=== PATIENT | male | born 1945 | race Caucasian/White ===

== ENCOUNTER 2019-02-07 15:40 | Outpatient (CLI) | payer MEDICARE ==
[~2019-02-07 15:40] MED LIST: Iopamidol 370 76% 100 ML VIAL ONE
[2019-02-07 16:39] LABS: Estimated GFR-MDRD - POC Greater than 90
--- NOTE | 2019-02-07 16:59 | CT ---
CT chest with IV contrast HISTORY: Aortic valve insufficiency. COMPARISON: 04/30/2014. FINDINGS: There is good contrast opacification pulmonary arteries and thoracic aorta with normal bran stepan great vessels. The descending aorta is upper limits of normal at 4.0 cm AP diameter. Calcification within the coronary arteries and other arterial structures. A few calcified mediastinal lymph nodes, consistent with healed granulomatous disease of the chest. No focal parenchymal lung mass, pleural fluid, or mediastinal adenopathy. Degenerative changes of the thoracic spine. Small liver cyst partially visualized. It appears stable. IMPRESSION: Atherosclerosis. Stable CT appearance of the chest. No significant abnormalities are demonstrated.
== END 2019-02-07 15:41 | disposition home or self-care (01) ==
LOC: BICCT 15:40
PROVIDERS: ATTEND Internal Medicine Cardiovascular Disease
DX: I35.1 Nonrheumatic aortic (valve) insufficiency (principal); I77.89 Other specified disorders of arteries and arterioles; I25.10 Atherosclerotic heart disease of native coronary artery without angina pectoris
CPT/HCPCS: 71260; 82565; Q9967

== ENCOUNTER 2022-03-24 12:33 | Outpatient (CLI) | payer MEDICARE ==
[~2022-03-24 12:33] MED LIST changes: +ISOVUE-370 76%-LOCM 1 ML ONE; -Iopamidol 370 76% 100 ML VIAL ONE
[2022-03-24 12:58] LABS: Estimated GFR-MDRD - POC Greater than 90
== END 2022-03-24 12:34 | disposition home or self-care (01) ==
LOC: BICCT 12:33
PROVIDERS: ATTEND Nurse Practitioner Family
DX: I77.89 Other specified disorders of arteries and arterioles (principal); I77.810 Thoracic aortic ectasia; I25.10 Atherosclerotic heart disease of native coronary artery without angina pectoris; K76.89 Other specified diseases of liver; K57.30 Diverticulosis of large intestine without perforation or abscess without bleeding
CPT/HCPCS: 71275; 82565; Q9966

== ENCOUNTER 2023-06-10 10:31 | Outpatient (CLI) | payer MEDICARE | END 2023-06-10 10:32 | disposition home or self-care (01) | LOC: SCSMRI 10:31 | PROVIDERS: ATTEND Orthopaedic Surgery | DX: M23.221 Derangement of posterior horn of medial meniscus due to old tear or injury, right knee (principal); M23.251 Derangement of posterior horn of lateral meniscus due to old tear or injury, right knee ==

== ENCOUNTER 2023-09-14 10:19 | Outpatient (CLI) | payer MEDICARE ==
[2023-09-14] MEDS ORDERED: Iopamidol-370 76% 500 ML MDV (1 ML CHARGE) ONE (11:20)
== END 2023-09-14 10:20 | disposition home or self-care (01) ==
LOC: BICCT 10:19
PROVIDERS: ATTEND Nurse Practitioner Family
DX: I77.89 Other specified disorders of arteries and arterioles (principal); I77.810 Thoracic aortic ectasia
CPT/HCPCS: 71275; 82565